=== PATIENT | female | born 1945 | race Caucasian/White ===

== ENCOUNTER → 2016-08-04 | Outpatient (CLI) | payer MEDICARE, OTHER ==
[~2016-08-04] MED LIST: ALEVE 220MG220 MG PO; CALCIUM1 CAP PO; GLUCOSAMINE & C1 CA2 PO; LUTEIN 15 MG-0.1 SGL PO; NORCO 325 MG-51 TAB PO; TIROSINT100 MCG PO; VITAMIN D3400 I1 PO
== END ==
LOC: MC.RAD 08:00
DX: Z12.31 Encounter for screening mammogram for malignant neoplasm of breast (principal); N63 Unspecified lump in breast; Z85.3 Personal history of malignant neoplasm of breast

== ENCOUNTER → 2016-08-06 | Outpatient (CLI) | payer MEDICARE, OTHER | LOC: MC.RAD 10:14 | DX: Z12.31 Encounter for screening mammogram for malignant neoplasm of breast (principal) ==

== ENCOUNTER → 2016-11-17 | Outpatient (CLI) | payer MEDICARE, OTHER | LOC: COL.RAD 11-15 12:45 | DX: D25.1 Intramural leiomyoma of uterus (principal); N85.8 Other specified noninflammatory disorders of uterus; R93.8 Abnormal findings on diagnostic imaging of other specified body structures ==

== ENCOUNTER → 2017-03-21 | Outpatient (CLI) | payer MEDICARE, OTHER | LOC: COL.LAB 15:49 | DX: Z01.812 Encounter for preprocedural laboratory examination (principal); M25.851 Other specified joint disorders, right hip ==

== ENCOUNTER → 2017-03-28 | Outpatient (REF) ==
[2017-03-28 08:30] LABS: COLLECTION METHOD CATHETER
[2017-03-28 08:37] LABS: MUCOUS Present /lpf; PH 5 (5-8); SQUAMOUS EPITHELIAL 0-2 /hpf; URINE APPEARANCE Clear; URINE BACTERIA None Seen /hpf; URINE BILIRUBIN Negative (NEGATIVE); URINE BLOOD Negative (NEGATIVE); URINE COLOR Yellow; URINE GLUCOSE Negative (NEGATIVE); URINE KETONE Negative (NEGATIVE); URINE LEUKOCYTE ESTERASE Negative (NEGATIVE); URINE PROTEIN(semi-quant) Negative (NEGATIVE); URINE RBC 0-2 /hpf; URINE UROBILINOGEN Negative (NEGATIVE); URINE WBC 0-2 /hpf
== END ==
LOC: ZMSC 08:29
PROVIDERS: Orthopaedic Surgery
DX: Z01.89 Encounter for other specified special examinations (principal)

== ENCOUNTER → 2017-08-09 | Outpatient (CLI) | payer MEDICARE, OTHER | LOC: MC.RAD 08:40 | DX: Z12.31 Encounter for screening mammogram for malignant neoplasm of breast (principal); Z85.3 Personal history of malignant neoplasm of breast ==

== ENCOUNTER → 2018-08-21 | Outpatient (CLI) | payer MEDICARE, OTHER | LOC: MC.RAD 08-10 10:15 | DX: Z12.31 Encounter for screening mammogram for malignant neoplasm of breast (principal); C50.111 Malignant neoplasm of central portion of right female breast ==

== ENCOUNTER → 2019-06-18 | Outpatient (CLI) | payer MEDICARE, OTHER | LOC: COL.RAD 12:46 | DX: R19.00 Intra-abdominal and pelvic swelling, mass and lump, unspecified site (principal); R91.1 Solitary pulmonary nodule ==

== ENCOUNTER → 2019-06-21 | Outpatient (CLI) | payer MEDICARE, OTHER | LOC: COL.RAD 10:27 | DX: R91.8 Other nonspecific abnormal finding of lung field (principal); Z85.3 Personal history of malignant neoplasm of breast; Z92.3 Personal history of irradiation | CPT/HCPCS: Q9967 ==

== ENCOUNTER 2019-06-28 06:57 | Outpatient (CLI) | payer MEDICARE, OTHER ==
[2019-06-28] VITALS (12 sets, daily range): BP systolic 122–167; BP diastolic 79–100; PULSE 64–94
[~2019-06-28] VITALS: Ht 157.5 cm; Wt 52.6 kg
[~2019-06-28 06:57] MED LIST changes: +CALCIUM CARBON650 M2 PO; -CALCIUM1 CAP PO; +FELDENE20 MG PO; +FOSAMAX 70MG TA70 MG PO; +OCUVITE1 TA1 PO; +STAY AWAKE200 MG PO; +TAMOXIFEN CITRA20 MG PO; -TIROSINT100 MCG PO; +TIROSINT112 MC1 PO
--- NOTE | 2019-06-28 08:00 | NUR ---
PT TAKEN TO CT ROOM AND PLACED ON TABLE IN CORRECT POSITION. MONITORING EQUIPMENT PLACED. IMAGES TAKEN AND SENT
--- NOTE | 2019-06-28 10:11 | NUR ---
Pt arrived from radiology at approx 0840 s/p biopsy. pt did well during her recovery, with no sob, cp or any other sx aside from some local discomfort at puncture site to rt chest. pt has clear ls bilaterally throughout her stay, and after chest xray was ambulatory to br with no problem, steady gait, remaining asymptomatic. dc instructions were reviewed with pt and . saline lock to lfa was dc'd with cath intact, dressing was applied. After okay for discharge received from radiologist, pt was escorted to exit via wheelchair.
== END 2019-06-28 20:18 | disposition home or self-care (01) ==
LOC: COL.RAD 06:57
DX: R91.1 Solitary pulmonary nodule (principal)
CPT/HCPCS: 32106

== ENCOUNTER → 2019-10-04 | Outpatient (CLI) | payer MEDICARE, OTHER | LOC: MC.RAD 15:22 | DX: Z12.31 Encounter for screening mammogram for malignant neoplasm of breast (principal); Z98.890 Other specified postprocedural states; Z85.3 Personal history of malignant neoplasm of breast; Z92.3 Personal history of irradiation ==

== ENCOUNTER → 2020-10-07 | Outpatient (CLI) | payer MEDICARE, OTHER | LOC: MC.RAD 10:14 | DX: Z12.31 Encounter for screening mammogram for malignant neoplasm of breast (principal); Z98.890 Other specified postprocedural states; Z92.3 Personal history of irradiation; Z85.3 Personal history of malignant neoplasm of breast ==

== ENCOUNTER → 2021-10-08 | Outpatient (CLI) | payer MEDICARE, OTHER | LOC: MC.RAD 10:00 | DX: Z12.31 Encounter for screening mammogram for malignant neoplasm of breast (principal); Z85.3 Personal history of malignant neoplasm of breast ==

== ENCOUNTER → 2023-11-28 | Outpatient (CLI) | payer MEDICARE | LOC: MC.RAD 07:39 | DX: Z12.31 Encounter for screening mammogram for malignant neoplasm of breast (principal) ==